=== PATIENT | female | born 1955 | race Caucasian/White ===

== ENCOUNTER → 2018-03-21 | Outpatient (CLI) | payer SELFPAY | END | disposition home or self-care (01) | LOC: OIH 15:16 | PROVIDERS: ATTEND Nurse Practitioner Family | DX: Z13.6 Encounter for screening for cardiovascular disorders (principal) | CPT/HCPCS: 75571 ==

== ENCOUNTER → 2020-03-05 | Outpatient (CLI) | payer OTHER | END | disposition home or self-care (01) | LOC: RAH 10:48 | PROVIDERS: ATTEND Internal Medicine Cardiovascular Disease | DX: Z13.6 Encounter for screening for cardiovascular disorders (principal) | CPT/HCPCS: 75571 ==

== ENCOUNTER → 2024-10-26 | Outpatient (CLI) | payer MEDICARE ==
[2024-10-26 16:46] LABS: ALBUMIN 3.6 g/dL (3.5-5.0); BILIRUBIN,TOTAL 0.5 mg/dL (0.2-1.0); POTASSIUM 4.2 mmol/L (3.5-5.1); TOTAL PROTEIN, SERUM 7.4 g/dL (6.0-8.3)
== END | disposition home or self-care (01) ==
LOC: LAB 13:55
PROVIDERS: ATTEND Internal Medicine Cardiovascular Disease
DX: I10 Essential (primary) hypertension (principal); R06.09 Other forms of dyspnea
CPT/HCPCS: 36415; 80053

== ENCOUNTER 2025-06-19 10:38 | Emergency (ER) | payer MEDICARE ==
[~2025-06-19] VITALS: Ht 157.5 cm; Wt 81.6 kg
--- NOTE | 2025-06-19 10:38 | NUR ---
UA CUP PROVIDED
--- NOTE | 2025-06-19 11:22 | ERN ---
ED Note History of Present Illness Stated Complaint: LEFT LEG PAIN, LEFT UPPER QUADR/RIB PAIN Chief Complaint: Multiple Complaints Time Seen by MD: 10:41 Time Seen by Midlevel: 10:45 Dictation: 69-year-old female coming in by elevation of left calf pain on the lateral aspect and pain on the left side of the rib, under the breasts when she takes a deep breath. Patient states she also saw her PCP a couple of days ago and they called her earlier that her D-dimer was elevated. Patient states he has had hi story of elevated D-dimer in the past. At this time does not have any complaints. Denies any chest pain, chest discomfort, shortness a breath, back pain, abdominal pain, nausea vomiting or diarrhea. Allergies: Coded Allergies: No Known Allergies (Unverified Allergy, Unknown, 06/19/25) Past Medical History Past Medical History: Other Additional Past Medical Hx: PTSD, Surgical History: Appendectomy, Hysterectomy Review of System Dictation Constitutional: Negative for fever,chills, and weight loss Eyes: Negative for injury, pain,redness, and discharge ENT: Negative for injury,pain or swelling Cardiovascular: Negative for chest pain, palpitations, and edema Respiratory: Negative for shortness of breath, cough, and wheezing, Abdomen/GI: Negative for abdominal pain, nausea, vomiting, diarrhea, and constipation Back: Negative for injury and pain : Negative for injury, bleeding and discharge MS/Extremity: Negative for injury and deformity Skin: Negative for rash, and discoloration Neuro: Negative for headache, weakness, numbness, tingling, and seizure Psych: Negative for suicide ideation, homicidal ideation, and hallucinations Review of Systems: was completed Initial Vital Sign VS Vital Signs Date Time Temp Pulse Resp B/P (MAP) Pulse Ox O2 Delivery O2 Flow Rate FiO2 06/19/25 10:40 97.9 95 20 151/91 96 Room Air 06/19/25 12:49 0 21 Physical Exam Dictation General: awake, alert, NAD Head/Face: Normocephalic, atraumatic Eyes: PERRL, EOMI, vision at baseline ENT: oral cavity clear, TMs clear, no signs of infection Neck: Trachea midline, supple, no nuchal rigidity Cardiovascular: RRR, normal S1/S2, No MRGs, no JVD Respiratory: CTAB, no respiratory distress, No rales or wheezes Abdomen: Soft, non-tender, non-distended, normal bowel sounds, no guarding or rebound. Skin: Warm, dry, normal turgor, no rash MS/Extremity: Pulses equal, no cyanosis, neurovascular intact, FROM Neuro: COAx4, GCS 15, strength 5/5, CN 2-12 intact, normal cerebellar exam, normal gait, Psych: Normal behavior, mood, and affect normal Results (Laboratory/Radiology) Laboratory/Radiology Laboratory Tests Test 06/19/25 11:49 06/19/25 13:33 White Blood Count 5.2 K/uL (4.8-10.8) Red Blood Count 4.74 MIL/uL (4.00-5.50) Hemoglobin 15.7 g/dL (12.0-16.0) Hematocrit 44.4 % (36-48) Mean Corpuscular Volume 93.7 fL (79-99) Mean Corpuscular Hemoglobin 33.1 pg (27.0-33.0) H Mean Corpuscular Hemoglobin Concent 35.4 g/dL (32.0-36.0) Red Cell Distribution Width 11.9 % (11.0-15.5) Platelet Count 254 K/uL (130-400) Mean Platelet Volume 9.7 fL (7.5-10.5) Immature Granulocyte % (Auto) 0.2 % (0-1) Neutrophils (%) (Auto) 49.7 % (40.0-77.0) Lymphocytes (%) (Auto) 34.2 % (21.0-51.0) Monocytes (%) (Auto) 10.7 % (3.0-13.0) Eosinophils (%) (Auto) 4.2 % (0.0-8.0) Basophils (%) (Auto) 1.0 % (0.0-5.0) Neutrophils # (Auto) 2.6 K/uL (1.8-7.7) Lymphocytes # (Auto) 1.8 K/uL (1.0-4.8) Monocytes # (Auto) 0.6 K/uL (0.1-1.0) Eosinophils # (Auto) 0.22 K/uL (0.00-0.70) Basophils # (Auto) 0.05 K/uL (0.00-0.20) Absolute Immature Granulocyte (auto 0.01 K/uL (0-1) Nucleated Red Blood Cells 0.0 % (0.0-0.19) D-Dimer Quantitative (PE/DVT) 1291 ng/mL (0-500) *H Sodium Level 137 mmol/L (136-145) Potassium Level 4.0 mmol/L (3.5-5.1) Chloride Level 103 mmol/L (101-111) Carbon Dioxide Level 28 mmol/L (21-32) Blood Urea Nitrogen 16 mg/dL (7-18) Creatinine 0.9 mg/dL (0.5-1.0) Glomerular Filtration Rate Calc 69 mL/min (>90) Random Glucose 109 mg/dL (70-105) H Total Calcium 9.4 mg/dL (8.5-10.1) Troponin I High Sensitivity 6 ng/L (4-50) Urine Color LIGHT-YELLOW (YELLOW) Urine Appearance CLEAR (CLEAR) Urine pH 6.5 (5.0-8.0) Urine Specific [place] 1.011 (1.001-1.031) Urine Protein NEGATIVE mg/dL (NEGATIVE) Urine Glucose (UA) NEGATIVE mg/dL (NEGATIVE) Urine Ketones NEGATIVE mg/dL (NEGATIVE) Urine Occult Blood NEGATIVE (NEGATIVE) Urine Nitrate NEGATIVE (NEGATIVE) Urine Bilirubin NEGATIVE mg/dL (NEGATIVE) Urine Urobilinogen 0.2 mg/dL (0.2-1.0) Urine Leukocyte Esterase NEGATIVE Carlyn/uL X-RAY Comment: [place] [address] IMAGING REPORT Signed PATIENT: CHANDRIKA GUERRA MR#: [id number] : 1955 SEX: F AGE: 69 LOCATION: [facility] ORDER 1111 STATUS: REG ER REPORT#: [id number] SERVICE 1110 REASON: sob ORDERING PHYSICIAN: IMANI SHI NP PROCEDURE: CXR1VW - CHEST 1VW EXAM: CR Chest, 1 View. CLINICAL HISTORY: sob COMPARISON: None provided. FINDINGS: LUNGS: There is no mass, infiltrate, or acute pulmonary abnormality. PLEURAL SPACES: No pleural effusion or pneumothorax. MEDIASTINUM: Cardiac size and mediastinal contours within normal limits. BONES: No aggressive appearing osseous lesion seen. IMPRESSION: No acute cardiopulmonary pathology is evident. /[place] DICTATED BY: BEN RANDOLPH Jr., MD DATE: 06/19/25 1253 ELECTRONICALLY SIGNED BY: BEN RANDOLPH Jr., MD DATE: 06/19/25 1253 Ultrasound Comment: [facility] [address] [place] [address] [id number] IMAGING REPORT Signed PATIENT: CHANDRIKA GUERRA MR#: [id number] : 1955 SEX: F AGE: 69 LOCATION: [facility] ORDER 1111 STATUS: [facility] REPORT#: [id number] SERVICE 1110 REASON: pain to calf ORDERING PHYSICIAN: IMANI SHI NP PROCEDURE: VENOUS UNI - US VENOUS DOPPLER UNILATERAL EXAM: US for Deep Venous Thrombosis, left Lower Extremity. CLINICAL HISTORY: Leg Pain and Swelling. Left calf pain. TECHNIQUE: Real-time ultrasound scan of the veins of the left lower extremity with color Doppler flow, spectral waveform analysis and compression. COMPARISON: None provided. FINDINGS: DEEP VEINS: The common femoral, superficial femoral, and popliteal veins are echolucent and compressible. There is normal color Doppler flow throughout. The visualized calf veins appear patent. SOFT TISSUES: No popliteal fossa cyst or other abnormalities. IMPRESSION: No deep venous thrombosis evident on left lower extremity examination. /[place] DICTATED BY: BEN RANDOLPH Jr., MD DATE: 06/19/25 1249 ELECTRONICALLY SIGNED BY: BEN RANDOLPH Jr., MD DATE: 06/19/[address] Scan Comment: [facility] [address] [place] [id number] IMAGING REPORT Signed PATIENT: CHANDRIKA GUERRA MR#: [id number] : 1955 SEX: F AGE: 69 LOCATION: [facility] ORDER 55 STATUS: REG ER REPORT#: [id number] SERVICE 1254 REASON: cp, elevated d-dimer ORDERING PHYSICIAN: IMANI SHI NP PROCEDURE: CHES PE - CT CHEST PE PROTOCOL WWO CONT EXAM: CTA Chest with and without Intravenous Contrast for PE evaluation CLINICAL HISTORY: cp, elevated d-dimer TECHNIQUE: Axial CTA images of the chest with and without intravenous contrast using a pulmonary embolism protocol. Multiplanar reconstructed images were created and reviewed. CONTRAST: None. was administered without incident. COMPARISON: None provided. FINDINGS: PULMONARY ARTERIES: No evidence of central or segmental pulmonary embolism is seen. AORTA: There is no evidence for aneurysm or dissection of the thoracic aorta. LUNGS: There are two small chronic appearing calcified probably granulomas within the right lower lung, the lungs are otherwise clear. PLEURAL SPACES: No pneumothorax evident. No pleural effusions. HEART: Heart size is within normal limits. No significant pericardial effusion. LYMPH NODES: No lymphadenopathy is evident. BONES: No focal osseous abnormality or acute fracture. UPPER ABDOMEN: Larg left renal cystic structure measuring 2.7 x 6.8cm not entirely included versus hydronephrosis. IMPRESSION: 1. No evidence of pulmonary embolism. 2. Two small chronic calcified granulomas in the right lower lung. 3. Large left renal cystic structure measuring 2.7 x 6.8 cm, incompletely imaged, versus hydronephrosis. Recommend ultrasound of the kidneys for further evaluaiton. /[place] DICTATED BY: STEVE PALOMINO MD DATE: 06/19/251556 ELECTRONICALLY SIGNED BY: STEVE PALOMINO MD DATE: 06/19/251556 ED Course ED Course Orders Procedure Category Date Status Time Cbc With Differential LAB 06/19/25 Complete 11:10 Basic Metabolic Panel LAB 06/19/25 Complete 11:10 D-Dimer LAB 06/19/25 Complete 11:10 Chest 1vw RAD 06/19/25 Resulted 11:10 Troponin I High LAB 06/19/25 Complete Sensitivity 11:10 12 Lead Ekg Tracing- EKG 06/19/25 Complete Technical 11:10 Us Venous Doppler US 9/23/25 Resulted Unilateral 11:10 0.9%Nacl 1000ml (Ns PHA 06/19/25 Complete 1000ml) 12:54 Ct Chest Pe Protocol CT 06/19/25 Resulted Wwo Cont 12:54 Urinalysis Profile LAB 06/19/25 Complete 13:36 Iohexol (Omnipaque) PHA 06/19/25 Complete 13:58 Current Medications Medications (Trade) Dose Ordered Sig/Marni Route PRN Reason Start Time Stop Time Status Last Admin Dose Admin Iohexol (Omnipaque) 75 ml STK-MED ONCE IV 06/19/25 13:58 06/19/25 13:58 DC Sodium Chloride 1,000 ml @ 1,000 mls/hr Q1H STAT IV 06/19/25 12:54 06/19/25 13:53 DC 06/19/25 13:39 Vital Signs Date Time Temp Pulse Resp B/P (MAP) Pulse Ox O2 Delivery O2 Flow Rate FiO2 06/19/25 15:21 98.1 86 16 145/88 98 Room Air* 0 06/19/25 12:49 98.1 90 16 150/90 98 Room Air* 0 21 06/19/25 10:40 97.9 95 20 151/91 96 Room Air Medical Decision Making MDM MDM: 69-year-old female coming in by elevation of left calf pain on the lateral aspect and pain on the left side of the rib, under the breasts when she takes a deep breath. Patient states she also saw her PCP a couple of days ago and they called her earlier that her D-dimer was elevated. Patient states he has had history of elevated D-dimer in the past. At this time does not have any complaints. Denies any chest pain, chest discomfort, shortness a breath, back pain, abdominal pain, nausea vomiting or diarrhea. Blood work is unremarkable. Troponin is negative. D-dimer is 1291. Ultrasound of the left calf was done and was negative for DVT and CTA of the chest was done to rule out a PE which was also negative. Case was discussed with the ER MD, patient has a 49 be discharged as D-dimer could be elevated related to age. At this time patient does not have any complaints, denies any shortness a breath, chest pain chest discomfort, vital signs have remained stable, no tachypnea, hypoxia or tachycardia. Discussed with the patient she needs to follow up outpatient with her PCP regarding findings for further evaluation if needed, discussed on signs and symptoms of when to return back to the emergency room. Patient was understanding, answered all questions. Differential diagnosis: DVTs, PE, lab error Rationale: Tests considered and ordered secondary to shared decision making include: Previous outside records reviewed: Old ER visits. Risk of complication and/or morbidity or mortality of patient management: None Medications-Per medication reconciliation Need for hospitalization: Patient does not meet criteria for hospitalization. Need for emergency major/minor surgery: No There are no social concerns with this patient. Prescription drug management Prescriptions will include symptomatic care Patient's prior external medical records from other ER visits were reviewed by me as indicated. Prior testing and results from previous visits were reviewed. Prior tests were taken into account with medical decision making and resource ut ilization, independent historian/historians were used to obtain complete medical history. I independently interpreted the test that were performed, results were reviewed by me and considered findings on radiology if ordered. Medical management and examination interpretation discussions were had by me with other qualified healthcare professionals as indicated for the patient's car e. DX & DISP Disposition: Discharge Departure Impression: Primary Impression: Elevated d-dimer Additional Impression: Renal cyst, left Condition: Stable Additional Instructions: your d-dimer is 1291. UA has a having incidental finding of a left renal cyst. Please follow up with your PCP for more appropriate evaluation and follow up. Referrals: CHARLENE MCCONNELL MD (PCP) Time of Disposition: 15:17 I have reviewed the case, and I agree with, Diagnosis and Plan IMANI SHI NP Jun 19, 2025 11:22 PAGE WILKES DO Jun 19, 2025 16:55
--- NOTE | 2025-06-19 11:49 | HMCIMG ---
EXAM: US for Deep Venous Thrombosis, left Lower Extremity. CLINICAL HISTORY: Leg Pain and Swelling. Left calf pain. TECHNIQUE: Real-time ultrasound scan of the veins of the left lower extremity with color Doppler flow, spectral waveform analysis and compression. COMPARISON: None provided. FINDINGS: DEEP VEINS: The common femoral, superficial femoral, and popliteal veins are echolucent and compressible. There is normal color Doppler flow throughout. The visualized calf veins appear patent. SOFT TISSUES: No popliteal fossa cyst or other abnormalities. IMPRESSION: No deep venous thrombosis evident on left lower extremity examination. /[place]
[2025-06-19 11:53] LABS: IMMATURE GRANULOCYTE ABSOLUTE 0.01 K/uL (0-1); NUCLEATED RED BLOOD CELLS 0.0 % (0.0-0.19); PLATELET COUNT (AUTO) 254 K/uL (130-400); RED BLOOD CELL COUNT(AUTO) 4.74 MIL/uL (4.00-5.50); RED CELL DISTRIBUTION WIDTH 11.9 % (11.0-15.5); WHITE BLOOD COUNT (AUTO) 5.2 K/uL (4.8-10.8)
--- NOTE | 2025-06-19 11:53 | HMCIMG ---
EXAM: CR Chest, 1 View. CLINICAL HISTORY: sob COMPARISON: None provided. FINDINGS: LUNGS: There is no mass, infiltrate, or acute pulmonary abnormality. PLEURAL SPACES: No pleural effusion or pneumothorax. MEDIASTINUM: Cardiac size and mediastinal contours within normal limits. BONES: No aggressive appearing osseous lesion seen. IMPRESSION: No acute cardiopulmonary pathology is evident. /[place]
[2025-06-19 12:00] LABS: CREATININE 0.9 mg/dL (0.5-1.0); GLOMERULAR FILTR. RATE CALC 69.0 mL/min (>90); GLUCOSE,RANDOM 109.0 mg/dL (70-105); SODIUM SERUM 137.0 mmol/L (136-145); UREA NITROGEN, BLOOD 16.0 mg/dL (7-18)
--- NOTE | 2025-06-19 12:10 | EKG ---
[facility] Test Date: 2025-06-19 Test Time: 12:04:17 Pat Name: CHANDRIKA GUERRA Department: ED Room: Gender: F Program Analyst: [id number] : 1955 Requested By: IMANI SHI Order Number: [id number] [place] MD: Harriet Kuo Measurements Intervals [place] Rate: 70 P: 30 CT: 181 QRS: -3 QRSD: 145 T: 98 QT: 434 QTc: 468 Interpretive Statements Sinus rhythm Left bundle branch block No previous ECG available for comparison Electronically Signed On 06-22-2025 08:34:06 CDT by Harriet Kuo Please click the below link to view image of tracing.
[2025-06-19] MEDS: 0.9%NACL 1000ML 1,000 ML IV STA (13:39)
[2025-06-19 13:57] LABS: APPEARANCE,URINE CLEAR (CLEAR); GLUCOSE, URINE (UA) NEGATIVE (NEGATIVE); LEUKOCYTE ESTERASE ,URINE NEGATIVE Leu/uL (NEGATIVE); NITRATE,URINE NEGATIVE (NEGATIVE); OCCULT BLOOD,URINE NEGATIVE (NEGATIVE)
[2025-06-19 13:58] LABS: ADD UA MICROSCOPIC NO
[2025-06-19] MEDS ORDERED: IOHEXOL-350 75 ML VIAL IV ONE (13:58)
--- NOTE | 2025-06-19 14:58 | HMCIMG ---
EXAM: CTA Chest with and without Intravenous Contrast for PE evaluation CLINICAL HISTORY: cp, elevated d-dimer TECHNIQUE: Axial CTA images of the chest with and without intravenous contrast using a pulmonary embolism protocol. Multiplanar reconstructed images were created and reviewed. CONTRAST: None. was administered without incident. COMPARISON: None provided. FINDINGS: PULMONARY ARTERIES: No evidence of central or segmental pulmonary embolism is seen. AORTA: There is no evidence for aneurysm or dissection of the thoracic aorta. LUNGS: There are two small chronic appearing calcified probably granulomas within the right lower lung, the lungs are otherwise clear. PLEURAL SPACES: No pneumothorax evident. No pleural effusions. HEART: Heart size is within normal limits. No significant pericardial effusion. LYMPH NODES: No lymphadenopathy is evident. BONES: No focal osseous abnormality or acute fracture. UPPER ABDOMEN: Larg left renal cystic structure measuring 2.7 x 6.8cm not entirely included versus hydronephrosis. IMPRESSION: 1. No evidence of pulmonary embolism. 2. Two small chronic calcified granulomas in the right lower lung. 3. Large left renal cystic structure measuring 2.7 x 6.8 cm, incompletely imaged, versus hydronephrosis. Recommend ultrasound of the kidneys for further evaluaiton. /[place]
[2025-06-19 15:21] VITALS: BP 145/88; PULSE 86; RESP 16; TEMP 98.1; O2SAT 98
== END 2025-06-19 15:37 | disposition home or self-care (01) ==
LOC: EDH 10:38
DX: R79.89 Other specified abnormal findings of blood chemistry (principal); N28.1 Cyst of kidney, acquired; Z90.49 Acquired absence of other specified parts of digestive tract; Z90.710 Acquired absence of both cervix and uterus
CPT/HCPCS: 99285; 96360; 71270; 93971; 71045; 84484; 80048; 85025; 85378; 81003; 36415; 93005; J7030; Q9967